=== PATIENT | male | born 1955 ===

== ENCOUNTER 2019-02-04 09:11 | Inpatient (IN) ==
[2019-02-04] MEDS ORDERED: PROTONIX IV SCH (10:00)
[2019-02-04] MEDS ORDERED: SODIUM CHLORIDE 0.9% INJ SCH (10:00)
[2019-02-04] MEDS: CLINIMIX E 4.25%-5% SOLUTION 1,000 ML IV SCH ×2 (10:30→22:29)
[2019-02-04] MEDS: ZOFRAN IV PRN (11:00)
[2019-02-04] MEDS: PEPCID IV SCH ×2 (11:00→22:29)
[2019-02-04] MEDS ORDERED: M.V.I.-12 10 ML, FOLIC ACID 1 MG, MAGNESIUM SULFATE 1 GM, THIAMINE 100 MG in NS 1,000 ML IV ONE (11:00)
[2019-02-04] MEDS ORDERED: ATIVAN IV ONE ×2 (11:11→22:00)
[2019-02-04] MEDS: FOLIC ACID 5 MG in NS 50 ML IV SCH (11:23)
[2019-02-04 12:47] LABS: BASO# 0.01 X1000 (0.0-0.2); BASO% 0.2 % (0.0-0.8); EOS# 0.31 X1000 (0.0-0.7); EOS% 6.3 % (0.0-10.0); HEMATOCRIT 35.4 % (42.0-52.0); HEMOGLOBIN 13.4 g/dL (14.0-18.0); LYMPH% 24.2 % (20.5-51.1); MCH 30.5 PG (27-31); MCHC 37.9 g/dL (33-37); MCV 80.5 FL (81-99); MONO# 0.64 X1000 (0.11-0.59); MONO% 12.9 % (1.7-9.3); MPV 10.2 FL (7.4-10.4); NEUT% 56.4 % (42.2-75.2); PLT 187 X1000 (130-400); RDW 11.5 % (11.5-14.5); WBC 4.96 X1000 (4.8-10.8)
--- NOTE | 2019-02-04 13:36 | Diag Imaging Result Doc PS360 ---
EXAM: CT HEAD W/O CONTRAST HISTORY: AMS TECHNIQUE: CT head without contrast COMPARISON: None. FINDINGS: No parenchymal hemorrhage. No epidural or subdural hematoma. No subarachnoid hemorrhage. No mass identified on this noncontrasted exam. No hydrocephalus. No sinus opacification. IMPRESSION: No hemorrhage. Negative brain CT without contrast. This exam was performed using automated exposure control, adjustment of mA or kV according to patient size, and/or use of iterative reconstruction technique. Electronically signed by Luis Miguel Benavides 02/04/2019 1:34 PM
[2019-02-04 16:39] LABS: AGAP 12; CHLORIDE 74 mmol/L (98-107); POTASSIUM 4.4 mmol/L (3.5-5.1); TCO2 20 mmol/L (25-35)
[2019-02-04 16:40] LABS: SODIUM 106 mmol/L (136-145)
[2019-02-04 16:41] LABS: ALB/GLOB RATIO 1.2; ALBUMIN 3.6 g/dL (3.5-5.0); ALKALINE PHOSPHATASE 83 U/L (32-122); BUN 7 mg/dL (8-22); CALCIUM 9.1 mg/dL (8.8-10.2); COSMO 211; CREATININE 0.6 mg/dL (0.7-1.2); GLUCOSE 116 mg/dL (70-104); GOT 21 U/L (10-34); GPT 14 U/L (10-44); TOTAL BILIRUBIN 0.38 mg/dL (0.20-1.00); TOTAL PROTEIN 6.6 g/dL (6.3-8.3)
[2019-02-04] MEDS: CARAFATE PO SCH ×2 (17:00→21:11)
[2019-02-04] MEDS ORDERED: NACL 3% 500 ML IV SCH ×2 (17:00→23:36)
[2019-02-04] MEDS ORDERED: ZOFRAN IV ONE (18:05)
[2019-02-04] MEDS ORDERED: PROTONIX IV ONE ×2 (20:36→21:00)
[2019-02-04] MEDS: AMBIEN PO PRN (22:29)
[2019-02-04 23:16] LABS: AGAP 9; BUN 11 mg/dL (8-22); CHLORIDE 76 mmol/L (98-107); COSMO 218; CREATININE 0.6 mg/dL (0.7-1.2); GLUCOSE 102 mg/dL (70-104); POTASSIUM 4.6 mmol/L (3.5-5.1); TCO2 22 mmol/L (25-35)
[2019-02-04 23:21] LABS: SODIUM 106 mmol/L (136-145)
[2019-02-04] MEDS ORDERED: CLINIMIX E 4.25%-5% SOLUTION 1,000 ML IV SCH (23:37)
[2019-02-05] MEDS: ZOFRAN IV PRN (06:09)
[2019-02-05 06:10] LABS: HEMATOCRIT 34.8 % (42.0-52.0); HEMOGLOBIN 12.9 g/dL (14.0-18.0); MCH 30.6 PG (27-31); MCHC 37.1 g/dL (33-37); MCV 82.5 FL (81-99); MPV 8.9 FL (7.4-10.4); RBC 4.22 XMIL (4.7-6.1); RDW 11.6 % (11.5-14.5); WBC 3.96 X1000 (4.8-10.8)
[2019-02-05] MEDS ORDERED: CORTROSYN IV ONE (06:30)
[2019-02-05 06:51] LABS: SODIUM 114 mmol/L (136-145)
[2019-02-05 06:52] LABS: AGAP 11; ALBUMIN 3.7 g/dL (3.5-5.0); ALKALINE PHOSPHATASE 87 U/L (32-122); AMYLASE 69 U/L (20-200); BUN 12 mg/dL (8-22); C REACTIVE PROT QUANT 25.92 mg/L (0.00-5.00); CALCIUM 9.2 mg/dL (8.8-10.2); CHLORIDE 80 mmol/L (98-107); COSMO 229; CREATININE 0.7 mg/dL (0.7-1.2); GLUCOSE 106 mg/dL (70-104); GOT 22 U/L (10-34); GPT 16 U/L (10-44); POTASSIUM 4.8 mmol/L (3.5-5.1); TCO2 22 mmol/L (25-35); TOTAL BILIRUBIN 0.32 mg/dL (0.20-1.00); TOTAL PROTEIN 7.4 g/dL (6.3-8.3)
[2019-02-05] MEDS: CARAFATE PO SCH ×4 (08:31→21:30)
[2019-02-05] MEDS ORDERED: PROTONIX IV ONE (10:00)
[2019-02-05] MEDS: SODIUM CHLORIDE 0.9% INJ SCH (10:28)
[2019-02-05] MEDS: PEPCID IV SCH ×2 (10:29→21:30)
[2019-02-05] MEDS: NICODERM PATCH TD SCH (10:31)
[2019-02-05] MEDS: FOLIC ACID 5 MG in NS 50 ML IV SCH (12:31)
[2019-02-05 16:25] LABS: AGAP 10; BUN 14 mg/dL (8-22); CALCIUM 9.1 mg/dL (8.8-10.2); CHLORIDE 80 mmol/L (98-107); COSMO 227; CREATININE 0.7 mg/dL (0.7-1.2); GLUCOSE 114 mg/dL (70-104); POTASSIUM 4.8 mmol/L (3.5-5.1); SODIUM 111 mmol/L (136-145); TCO2 21 mmol/L (25-35)
--- NOTE | 2019-02-05 16:50 | HISTORY AND PHYSICAL ---
CHIEF COMPLAINT: Persistent nausea, vomiting, hiccups, altered mental status. 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 He has had persistent nausea, vomiting, hiccups, and diarrhea for the last 3 days. He is not holding anything down. He also has some confusion, dizziness upon standing. As a result, he was admitted to the hospital directly. Upon workup he has significant hyponatremia, basically rule out SIADH. As a result, a hospital admission was warranted. PAST MEDICAL HISTORY: Benign prostatic hypertrophy with bladder outlet symptoms, hypertension, Dilutional hyponatremia, elevated PSA, and vitamin D deficiency. PAST SURGICAL HISTORY: 1. Prostate biopsy April [address] Melvin, negative for malignancy. During that time he had elevated 4-K score and prostate biopsy was negative. 2. Left heart catheterization [address] Jain in [facility]. 3.Vasectomy. MEDICINES: Toprol-XL 25 mg daily, vitamin D 11520 once a week, Xanax as needed, Flomax/Avodart combination 1 tablet daily. ALLERGIES: Iodine due to skin rash. Sulfa drugs, Kaur-Irvin syndrome. Levaquin causing tendinitis. SOCIAL HISTORY: , 3 children. Lives in [place]. 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 History of smoking in the past, tried to quit for the last 1 month. Socially drinks alcohol. FAMILY HISTORY: Father of CAD. Mom is still alive, pretty healthy. Brother had meningioma, prostate cancer, acoustic neuroma. REVIEW OF SYSTEMS: HEENT: Altered mental status, confusion, dizziness upon standing. Neck: No neck pain. No goiter. No lymphadenopathy. Cardiopulmonary: No chest pain, shortness of breath, PND, orthopnea. GI: Nausea, vomiting, retching, diarrhea, weight loss for the last 5 months. : History of hesitancy, frequency. No dysuria. BPH symptoms with chronic prostatitis. Extremities: No claudication symptoms. History of right knee pain due to tendinitis from Levaquin. No skin rashes. No joint pains. Neurologic: No focal symptoms or weakness. PHYSICAL EXAMINATION: VITAL SIGNS: He is orthostatic by pulse. Afebrile. Hemodynamics are stable at rest. HEENT: Atraumatic, normocephalic. Pupils equal, react to light. No jaundice. Dry mucous membranes. NECK: Supple. CHEST: Bilateral air entry. HEART: Sounds are regular. ABDOMEN: Belly is soft and nontender. No signs of peritonitis. Enlarged prostate. NEUROLOGIC: No obvious neurological deficits. INVESTIGATIONS: CBC: White cell count 4.9, hematocrit 35.4, platelet 187,000. Sedimentation rate 70. Sodium 106, potassium 4.6, chloride 76, CO2 22, anion gap is normal, BUN 11, creatinine 0.6, glucose 102, calcium 9.6. Liver function tests were normal. CRP is slightly high. Chest x- ray stable. CT head is pending. ASSESSMENT AND PLAN: This is a 64-year-old male admitted to the hospital basically for altered mental status due to delirium from metabolic encephalopathy, significant hyponatremia due to persistent nausea and vomiting. 1. Rule out syndrome of inappropriate antidiuretic hormone secretion. Check the cortisol stimulation test. Hypertonic saline slowly and monitoring BMP every 8 hours. 2. Lack of appetite, poor nutritional status. IV Clinimix. 3. Vitamin D deficiency. On replacement therapy. 4. Diarrhea. We will get stool cultures. 5. Chronic prostatitis, elevated prostate-specific antigen. Biopsy was negative for malignancy. 6. Suspicious granulomatosis disease. Differential diagnosis TB versus fungal. Empirical Treatment with RIPE under DOT. Continue IV folic acid. 7. Symptomatic treatment for nausea with Zofran. 8. Anxiety/insomnia. Ativan as needed. 9. Gastrointestinal prophylaxis with IV Pepcid. 10. Chronic nicotine. Cessation programs discussed, with Nicotrol patches. Discussed the plan of care with the family and will follow up. cc: Maximo Perrea MD [facility]
[2019-02-05] MEDS ORDERED: CLINIMIX E 4.25%-5% SOLUTION 1,000 ML IV SCH (18:52)
--- NOTE | 2019-02-05 21:13 | PROGRESS NOTE ---
DATE: 02/05/2019 SUBJECTIVE: Today he is feeling a little better. He is orthostatic, blood pressure dropped 90/60, tachycardic, still feeling dizzy. Mental status is improving. CT head was negative. The patient is getting 3% hypertonic saline. EXAMINATION: Vital Signs: Temp is 98, pulse is 128, blood pressure is 100/66. HEENT: Within normal limits. Chest: Clear. Heart: Sounds are regular. Abdomen: Belly is soft, nontender. Extremities: Right knee pain was much improved. Neurologic: No neurological deficits. INVESTIGATIONS: Sodium 111, potassium 4.8, BUN 14, creatinine 0.7. LFTs were normal. ASSESSMENT AND PLAN: 1. Hyponatremia, due to combination of SIADH and nausea and vomiting. 2. Cortisone stimulation test is a suboptimal. No increment response. 3. Left adrenal adenoma. Plan of care is continue hypertonic saline. Continue to monitor BMP every 8 hours. 4. Suspicious with primary adrenal insufficiency. 24 hour urine studies for cortisol, aldosterone and catecholamines and decreased the Clinimix 50 mL/h. 5. Vitamin D deficiency, on replacement. 6. The patient was given IV Protonix, improving the hiccups and nausea and vomiting. Slowly advance the diet and hydration. Will repeat the labs in the morning. LEVEL OF DOCUMENTATION: 25 minutes. cc: Maximo Perera MD
[2019-02-05] MEDS: ATIVAN IV ONE ×2 (21:31→21:48)
[2019-02-05] MEDS: VITAMIN D PO SCH (21:48)
[2019-02-05] MEDS: SODIUM CHLORIDE 0.9% INJ PRN (21:50)
[2019-02-05] MEDS: AMBIEN PO PRN (23:28)
[2019-02-06 06:16] LABS: BASO# 0.01 X1000 (0.0-0.2); BASO% 0.3 % (0.0-0.8); EOS# 0.26 X1000 (0.0-0.7); EOS% 6.8 % (0.0-10.0); HEMATOCRIT 34.8 % (42.0-52.0); HEMOGLOBIN 12.8 g/dL (14.0-18.0); LYMPH# 1.13 X1000 (1.2-3.4); LYMPH% 29.6 % (20.5-51.1); MCH 30.2 PG (27-31); MCHC 36.8 g/dL (33-37); MCV 82.1 FL (81-99); MONO# 0.57 X1000 (0.11-0.59); MONO% 14.9 % (1.7-9.3); MPV 9.5 FL (7.4-10.4); NEUT# 1.85 X1000 (1.4-6.5); NEUT% 48.4 % (42.2-75.2); PLT 205 X1000 (130-400); RBC 4.24 XMIL (4.7-6.1); RDW 11.7 % (11.5-14.5); WBC 3.82 X1000 (4.8-10.8)
[2019-02-06 07:12] LABS: AGAP 12; BUN 14 mg/dL (8-22); CALCIUM 9.5 mg/dL (8.8-10.2); CHLORIDE 82 mmol/L (98-107); COSMO 234; CREATININE 0.6 mg/dL (0.7-1.2); GLUCOSE 105 mg/dL (70-104); POTASSIUM 4.5 mmol/L (3.5-5.1); TCO2 21 mmol/L (25-35)
[2019-02-06 07:22] LABS: SODIUM 115 mmol/L (136-145)
[2019-02-06] MEDS: PEPCID IV SCH ×2 (09:42→23:00)
[2019-02-06] MEDS: NICODERM PATCH TD SCH ×2 (09:42→09:53)
[2019-02-06] MEDS: VITAMIN D PO SCH (09:42)
[2019-02-06] MEDS: SODIUM CHLORIDE 0.9% INJ PRN (09:42)
[2019-02-06] MEDS: CARAFATE PO SCH ×3 (09:42→18:15)
[2019-02-06] MEDS ORDERED: SOLU-CORTEF IV ONE (10:30)
[2019-02-06] MEDS ORDERED: FLORINEF PO ONE (10:30)
[2019-02-06] MEDS: NACL 3% 500 ML IV SCH ×2 (12:17→12:22)
[2019-02-06] MEDS: FOLIC ACID 5 MG in NS 50 ML IV SCH (12:17)
[2019-02-06] MEDS ORDERED: PREVNAR 13 IM ONE (13:59)
[2019-02-06] MEDS ORDERED: BOOSTRIX VACCINE IM ONE (13:59)
[2019-02-06] MEDS ORDERED: XANAX PO ONE (19:12)
[2019-02-06] MEDS ORDERED: TOPROL XL PO ONE (19:38)
--- NOTE | 2019-02-06 20:52 | PROGRESS NOTE ---
DATE: 02/06/2019 SUBJECTIVE: The patient is slowly improving. Sodium levels 115 on hypertonic saline. Confusion is better. Eating better. No hiccups. No nausea. OBJECTIVE: Review of systems: Upon standing, heart rate is going up. Blood pressure is stable. HEENT exam within normal limits. Chest is clear. Heart sounds are tachycardic. Belly is soft, nontender. No obvious neurological deficits. LABS: CBC: White cell count 3.8, hematocrit 35, platelets 205,000. Sodium 115, potassium 4.5, BUN 14, creatinine 0.6 glucose 105. CRP is high. Thyroid function test was normal. ASSESSMENT AND PLAN: 1. Hyponatremia due to combination of intravascular volume depletion along with adrenal insufficiency. 2. Adrenal adenoma suspicious for adrenal insufficiency on cortisone stimulation test. Twenty- four-hour urine studies are pending. 3. Started on Solu-Cortef and Florinef. 4. Tachycardia upon standing. 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 Start on Toprol- XL. Discontinue Clinimix since he is eating well and initiate vaccination protocol prior to the discharge. We will begin with Solu-Cortef 20 in the morning, 10 in the night, along with Florinef and repeat the SMA-7 in the morning. LEVEL OF DOCUMENTATION: 25 minutes. cc: Maximo Perera MD [facility]
[2019-02-06] MEDS ORDERED: CORTEF PO SCH (21:00)
[2019-02-06] MEDS: SODIUM CHLORIDE 0.9% INJ SCH (23:06)
[2019-02-06] MEDS: XANAX PO PRN (23:14)
[2019-02-07] MEDS: AMBIEN PO PRN (01:38)
[2019-02-07 07:35] VITALS: BP 111/73
--- NOTE | 2019-02-07 07:38 | EKG Report ---
Test Performed on : 02/06/2019 7:44:44 PM Test Reason : hr 143 Blood Pressure : / mmHG Vent. Rate : 090 BPM Atrial Rate : 090 BPM P-R Int : 190 ms QRS Dur : 084 ms QT Int : 348 ms P-R-T Axes : 068 031 057 degrees QTc Int : 425 ms Normal sinus rhythm. Normal ECG No previous ECGs available Confirmed by Bhavna LEAHY, Jarek Vasquez ([id number]) on 02/07/2019 5:30:41 PM
[2019-02-07] MEDS ORDERED: CORTEF PO SCH (09:00)
[2019-02-07] MEDS ORDERED: TOPROL XL PO SCH (09:00)
[2019-02-07] MEDS ORDERED: FLORINEF PO SCH (09:00)
[2019-02-07] MEDS: VITAMIN D PO SCH (09:19)
[2019-02-07] MEDS: NACL 3% 500 ML IV SCH (09:24)
[2019-02-07] MEDS: NICODERM PATCH TD SCH (09:24)
[2019-02-07 09:36] LABS: AGAP 14; BUN 12 mg/dL (8-22); CALCIUM 9.8 mg/dL (8.8-10.2); CHLORIDE 88 mmol/L (98-107); COSMO 249; CREATININE 0.8 mg/dL (0.7-1.2); GLUCOSE 160 mg/dL (70-104); POTASSIUM 3.9 mmol/L (3.5-5.1); SODIUM 122 mmol/L (136-145); TCO2 20 mmol/L (25-35)
[2019-02-07] MEDS: XANAX PO PRN (09:48)
--- NOTE | 2019-02-12 19:54 | DISCHARGE SUMMARY ---
ADMISSION DATE: 02/04/2019 DISCHARGE DATE: 02/07/2019 DISCHARGING DIAGNOSIS: Altered mental status due to metabolic encephalopathy. SECONDARY DIAGNOSIS: 1. Hyponatremia due to primary adrenal insufficiency. 2. Vitamin D deficiency. 3. Chronic granulomatosis, prostatitis due to [place] disease under treatment with RIPE under DOT . 4. Benign prostatic hypertrophy. Biopsy was negative for malignancy. 5. Hypertension. PROCEDURES: 1. Cortisone stimulation test consistent with primary adrenal insufficiency. Baseline cortisol 5.7 without any improvement response after ACTH. 2. 24 hour urine studies, aldosterone levels were low, cortisol level 4.7, catecholamine levels were normal. 1. CT head negative. BRIEF HISTORY: Please see the H and P that was done on 02/04/2019. 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 HOSPITAL COURSE: The patient was mentally confused , due to delirium. CT head was negative. The patient was given banana bag replacing folic acid, thiamine, electrolytes. Symptomatic treatment, Zofran for nausea. The patient developed agitation and had Paradoxical response with Ativan. For hyponatremia part of the workup, patient ruled in adrenal insufficiency. Slowly hypertonic saline was given. Followup sodium level slowly increased to 122 from 106. Mental status was improving. Cortisone stimulation test was suboptimal response without any improvement. The patient was given a loading dose of hydrocortisone followed by replacement with hydrocortisone 20 mg in the morning, 10 in the evening along with Florinef 0.1 mg per day. Chest x-ray was clear. CT head was negative. He was slightly orthostatic by pulse. Followup EKG did not show any injury or ischemia. Previous cardiac catheterization was negative in 2018. QT intervals are normal. The patient was given low dose of beta blockers. Patient was advised to continue vitamin D replacement therapy. Improving the nutrition status. Thyroid function tests were normal. Also has significant diarrhea. Follow up on stool cultures. Lactoferrin is negative. Initially thought to be C difficile from antibiotics for chronic prostatitis. Stool cultures were negative for any pathogens. At the time of discharge patient was stable hemodynamics. No orthostatic hypotension noted. CBC. White cell count 3.8, hematocrit 34.8, platelets 205,000, sedimentation rate was 70. Sodium 122, potassium 3.9, BUN 12, creatinine 0.8, glucose 160, calcium 9.8. Stool for pancreatic elastase is normal more than 500. At the time of discharge patient was given vaccinations, Tdap 02/07/2019, #2 Prevnar 13 02/07/2019, Metoprolol 25 p.o. b.i.d. or once a day. Discontinue vancomycin, Xanax 0.125 as needed, hydrocortisone 25 in the morning 10 in the night, Florinef 0.1 daily, vitamin D3 800 units daily. Follow up in my office on Wednesday for repeat the electrolytes, ACTH, prolactin and further treatment for chronic prostatitis. cc: Maximo Perera MD [facility]
== END 2019-02-07 09:46 | disposition home or self-care (01) | DRG 643 ==
LOC: DIRADM 09:11 → 4N 10:18
PROVIDERS: ADMIT Internal Medicine; ATTEND Internal Medicine
CPT/HCPCS: 70450; 80048; 80053; 80076; 81050; 82088; 82140; 82150; 82270; 82382; 82384; 82530; 82533; 82656; 83630; 83735; 84100; 84439; 84443; 84481; 85025; 85027; 85651; 86140; 87045; 87046; 90670; 90715; 93005; 93010; 99999; A9270; C9113; J0834; J1720; J2060; J2405; J3411; J3475; J7030; S0028; S0164